=== PATIENT | female | born 1980 | race Caucasian/White ===

== ENCOUNTER 2018-01-14 22:32 | Emergency (ER) | payer OTHER ==
[~2018-01-14] VITALS: Ht 152.4 cm; Wt 90.7 kg
[~2018-01-14 22:32] MED LIST: ACETAMINOPHEN-1 EAC1 PO; AEROCHAMBER PL1 EACH MC; ALEVE220 MG PO; ATIVAN0.5 MG PO; BACTRIM DS TAB1 EACH PO; CLARITIN10 MG PO; DOXYCYCLINE 10100 MG PO; FLEXERIL PO; MEDROLDOSEPACK PO; MEGA BIOTIN10000 MCG PO; METFORMIN HCL500 MG PO; PERCOCET 5-3251 EACH PO; PHENAZOPYRIDIN200 M2 PO; PROAIR HFA8.5 GM INH; PROZAC20 M1 PO; TRINATE TABLET1 TAB PO; WELLBUTRIN SR150 MG PO; ZPAK PO
[2018-01-14] MEDS ORDERED: CELEXA40 MG (22:40)
[2018-01-14] MEDS ORDERED: CIPRODEX OTIC7.5 ML OTIC (22:47)
[2018-01-14 23:07] VITALS: BP 179/102
== END 2018-01-14 23:07 | disposition home or self-care (01) ==
LOC: M.ERS 22:32
DX: S00.412A Abrasion of left ear, initial encounter (principal); E11.9 Type 2 diabetes mellitus without complications; J44.9 Chronic obstructive pulmonary disease, unspecified; F17.210 Nicotine dependence, cigarettes, uncomplicated; Z88.5 Allergy status to narcotic agent; Z88.0 Allergy status to penicillin; Z91.041 Radiographic dye allergy status; X58.XXXA Exposure to other specified factors, initial encounter; Y93.89 Activity, other specified; Y92.89 Other specified places as the place of occurrence of the external cause; Y99.8 Other external cause status

== ENCOUNTER 2018-06-18 09:18 | Emergency (ER) | payer OTHER ==
[~2018-06-18] VITALS: Ht 152.4 cm; Wt 88.0 kg
[~2018-06-18 09:18] MED LIST changes: +CELEXA40 MG; +CIPRODEX OTIC7.5 ML OTIC
[2018-06-18] MEDS ORDERED: XANAX 0.25 MG0.25 MG PO (09:25)
[2018-06-18] MEDS ORDERED: BUSPIRONE HCL10 MG PO (09:25)
[2018-06-18] MEDS ORDERED: HYPERTENSION MED (09:31)
[2018-06-18] MEDS ORDERED: COZAAR 25 MG TA25 M1 PO (09:32)
[2018-06-18 09:40] LABS: ABSOLUTE EOSINOPHILS 0.3 thou/uL (0.0-0.7); ABSOLUTE LYMPHOCYTES 2.9 thou/uL (0.8-5.3); ABSOLUTE MONOCYTES 0.4 thou/uL (0.0-1.2); ABSOLUTE NEUTROPHILS 6.1 thou/uL (1.6-8.1); BASOPHILS 0.4 %; HEMATOCRIT 45.3 % (37.0-47.0); HEMOGLOBIN 15.2 gm/dL (12.0-15.0); MCHC 33.7 g/dL (28.0-37.0); MCV 86.2 fL (80.0-100.0); MONOCYTES 3.9 %; MPV 8.6 fl. (7.2-11.1); NUCLEATED RBCS 0 /100WBC; PLATELET COUNT* 245 thou/uL (150-400); POLYS 62.7 %; RBC 5.25 mil/uL (4.20-5.00); RDW-CV 14.2 % (10.5-14.5); WBC 9.8 thou/uL (4.0-11.0)
[2018-06-18 09:51] LABS: APTT 28.5 Seconds (25.0-31.3); INR 0.9; PROTIME 9.6 Seconds (9.20-11.50)
[2018-06-18 09:58] LABS: ANION GAP 9 mmol/L (7-16); BUN 13 mg/dL (7-18); CALCIUM 8.9 mg/dL (8.5-10.1); CHLORIDE 104 mmol/L (98-107); CO2 25 mmol/L (21-32); CREATININE 0.9 mg/dL (0.6-1.3); GLUCOSE 158 mg/dL (70-99); POTASSIUM 3.9 mmol/L (3.5-5.1); SODIUM 138 mmol/L (136-145)
[2018-06-18 10:16] LABS: ALBUMIN 3.5 g/dL (3.4-5.0); ALKALINE PHOSPHATASE 75 U/L (46-116); CK-MB MASS 0.8 ng/mL (<0.5-3.6); LIPASE 203 U/L (73-393); NT-PRO BRAIN NAT PEPTIDE 24 pg/mL (<300); SGOT 10 U/L (15-37); SGPT 20 U/L (30-65); TOTAL BILIRUBIN 0.1 mg/dL (<0.1-1.0); TOTAL PROTEIN 7.1 g/dL (6.4-8.2); TROPONIN-I LEVEL <0.06 ng/mL (<0.06)
[2018-06-18 10:41] VITALS: BP 143/86
--- NOTE | 2018-06-18 14:57 | EKG ---
[place] [address] ELECTROCARDIOGRAM REPORT Name: LEATHA GOELSORAYAAPARNA Willams Room: [facility]#: [id number] Admission: 06/18/18 Attend Phys: Discharge: 06/18/18 Date of : 76 Report #: [id number] THIS REPORT FOR: //name// [facility] ED Test Date: 2018-06-18 Test Time: 09:22:44 Pat Name: RICK GOEL Department: Room: Gender: F Financial Aid Advisor: KELLEE : 1980 Requested By: Alistair Lisa Order Number: [id number] MD: Rahat Wade Measurements Intervals [place] Rate: 83 P: 35 MT: 121 QRS: 18 QRSD: 81 T: 17 QT: 363 QTc: 427 Interpretive Statements Sinus rhythm Baseline wander in lead(s) II,III,aVL,aVF,V2,V3,V4,V5,V6 Compared to ECG 09/12/2014 09:25:08 No significant changes Electronically Signed On 06-18-2018 14:57:18 IMAGE ASSEMBLER by Rahat Wade [email or web address] <ELECTRONICALLY SIGNED> By: Rahat Wade MD, [facility] 06/18/18 1457 Rahat Wade MD, [facility] /EPI
== END 2018-06-18 10:42 | disposition home or self-care (01) ==
LOC: M.ERS 09:18
PROVIDERS: Family Medicine
DX: R07.89 Other chest pain (principal); F41.9 Anxiety disorder, unspecified; E11.9 Type 2 diabetes mellitus without complications; F17.210 Nicotine dependence, cigarettes, uncomplicated; Z88.0 Allergy status to penicillin; Z88.5 Allergy status to narcotic agent; Z91.041 Radiographic dye allergy status; Z88.8 Allergy status to other drugs, medicaments and biological substances

== ENCOUNTER 2018-12-04 13:16 | Emergency (ER) | payer OTHER ==
[~2018-12-04] VITALS: Ht 152.4 cm; Wt 90.7 kg
[~2018-12-04 13:16] MED LIST changes: +BUSPIRONE HCL10 MG PO; +COZAAR 25 MG TA25 M1 PO; +HYPERTENSION MED; +XANAX 0.25 MG0.25 MG PO
[2018-12-04 13:59] LABS: ABSOLUTE BASOPHILS 0.1 thou/uL (0.0-0.2); ABSOLUTE MONOCYTES 0.3 thou/uL (0.0-1.2); ABSOLUTE NEUTROPHILS 6.6 thou/uL (1.6-8.1); BASOPHILS 1.2 %; HEMATOCRIT 45.7 % (37.0-47.0); HEMOGLOBIN 15.6 gm/dL (12.0-15.0); LYMPHOCYTES 22.4 %; MCH 29.1 pg (26.0-34.0); MCHC 34.1 g/dL (28.0-37.0); MCV 85.3 fL (80.0-100.0); MONOCYTES 3.8 %; MPV 8.9 fl. (7.2-11.1); NUCLEATED RBCS 0 /100WBC; PLATELET COUNT* 215 thou/uL (150-400); POLYS 72.6 %; RBC 5.36 mil/uL (4.20-5.00); RDW-CV 14.3 % (10.5-14.5)
[2018-12-04 14:07] LABS: URINE BILIRUBIN NEGATIVE (Negative); URINE BLOOD NEGATIVE (Negative); URINE CLARITY CLEAR; URINE COLOR YELLOW; URINE GLUCOSE-RANDOM NEGATIVE (Negative); URINE KETONES TRACE (Negative); URINE LEUKOCYTES-REFLEX NEGATIVE (Negative); URINE NITRITE-REFLEX NEGATIVE (Negative); URINE PROTEIN NEGATIVE (Negative); URINE SPECIFIC GRAVITY >= 1.030 (1.005-1.030); URINE UROBILINOGEN 0.2 E.U./dl (0.2-1.0)
[2018-12-04 14:11] LABS: ANION GAP 9 mmol/L (7-16); APTT 25.1 Seconds (25.0-31.3); BUN 14 mg/dL (7-18); CALCIUM 9.6 mg/dL (8.5-10.1); CHLORIDE 103 mmol/L (98-107); CO2 27 mmol/L (21-32); GLUCOSE 137 mg/dL (70-99); POTASSIUM 3.9 mmol/L (3.5-5.1); PROTIME 9.8 Seconds (9.20-11.50); SODIUM 139 mmol/L (136-145)
[2018-12-04 14:14] LABS: AMP/METHAMP Negative (Negative); BARBITURATES Negative (Negative); BENZODIAZEPINES Negative (Negative); COCAINE Negative (Negative); METHADONE Negative (Negative); OPIATES Negative (Negative); PCP Negative (Negative); THC Negative (Negative)
[2018-12-04 14:24] LABS: ALKALINE PHOSPHATASE 87 U/L (46-116); NT-PRO BRAIN NAT PEPTIDE 30 pg/mL (<300); SGOT 16 U/L (15-37); SGPT 24 U/L (30-65); TOTAL BILIRUBIN 0.3 mg/dL (<0.1-1.0); TOTAL PROTEIN 7.8 g/dL (6.4-8.2); TROPONIN-I LEVEL <0.06 ng/mL (<0.06)
[2018-12-04 14:26] LABS: SALICYLATE 3.5 mg/dL (2.8-20.0)
[2018-12-04 14:27] LABS: ACETAMINOPHEN < 2 ug/mL (10-30); ALCOHOL < 10 mg/dL (<10)
--- NOTE | 2018-12-04 16:26 | EKG ---
[place] [address] ELECTROCARDIOGRAM REPORT Name: LEATHA GOELSORAYAAPARNA Willams Room: [facility]#: [id number] Admission: 12/04/18 Attend Phys: Discharge: Date of : [birth year] Report #: [id number] THIS REPORT FOR: //name// [facility] ED Test Date: 2018-12-04 Test Time: 13:24:50 Pat Name: RICK GOEL Department: Room: Gender: F Fitter Up: PAUL : 1980 Requested By: Srinivasa [place] Order Number: [id number] MD: Jabier Cerna Measurements Intervals [place] Rate: 77 P: 30 CA: 133 QRS: 3 QRSD: 82 T: 7 QT: 403 QTc: 457 Interpretive Statements Sinus rhythm Baseline wander in lead(s) V5 Compared to ECG 06/18/2018 09:22:44 No significant changes Electronically Signed On 12-04-2018 16:26:00 CDT by Jabier Cerna [email or web address] <ELECTRONICALLY SIGNED> By: Jabier Cerna MD, [facility] 12/04/18 1626 1324 1324 Jabier Cerna MD, FACC /EPI
[2018-12-04 17:02] VITALS: BP 139/88
== END 2018-12-04 17:03 | disposition home or self-care (01) ==
LOC: M.ERS 13:16
PROVIDERS: Emergency Medicine
DX: E86.0 Dehydration (principal); E11.9 Type 2 diabetes mellitus without complications; F41.9 Anxiety disorder, unspecified; E28.2 Polycystic ovarian syndrome; F17.210 Nicotine dependence, cigarettes, uncomplicated; Z88.0 Allergy status to penicillin; Z88.2 Allergy status to sulfonamides; Z88.5 Allergy status to narcotic agent; Z88.8 Allergy status to other drugs, medicaments and biological substances; Z91.041 Radiographic dye allergy status

== ENCOUNTER 2020-09-01 06:36 | Emergency (ER) | payer OTHER ==
[~2020-09-01] VITALS: Ht 152.4 cm; Wt 90.7 kg
[2020-09-01 07:34] VITALS: BP 152/80
== END 2020-09-01 07:35 | disposition home or self-care (01) ==
LOC: M.ERS 06:36
DX: F41.9 Anxiety disorder, unspecified (principal); F41.0 Panic disorder [episodic paroxysmal anxiety]; R61 Generalized hyperhidrosis; E11.9 Type 2 diabetes mellitus without complications; F17.210 Nicotine dependence, cigarettes, uncomplicated; Z88.5 Allergy status to narcotic agent; Z91.041 Radiographic dye allergy status; Z88.0 Allergy status to penicillin; Z88.2 Allergy status to sulfonamides; Z88.8 Allergy status to other drugs, medicaments and biological substances

== ENCOUNTER 2021-02-20 22:34 | Emergency (ER) | payer OTHER ==
[~2021-02-20] VITALS: Ht 152.4 cm; Wt 90.7 kg
[2021-02-20] MEDS ORDERED: COZAAR100 MG PO (22:44)
[2021-02-20] MEDS ORDERED: BUSPIRONE HCL15 MG PO (22:44)
[2021-02-20] MEDS ORDERED: VENLAFAXINE HCL25 MG PO (22:45)
[2021-02-20] MEDS ORDERED: SINGULAIR 10 MG10 MG PO (22:46)
[2021-02-20] MEDS ORDERED: CLARITIN10 M3 PO (22:46)
[2021-02-20 23:22] LABS: ABSOLUTE BASOPHILS 0.1 thou/uL (0.0-0.2); ABSOLUTE EOSINOPHILS 0.1 thou/uL (0.0-0.7); ABSOLUTE LYMPHOCYTES 1.8 thou/uL (0.8-5.3); ABSOLUTE MONOCYTES 0.5 thou/uL (0.0-1.2); ABSOLUTE NEUTROPHILS 3.6 thou/uL (1.6-8.1); BASOPHILS 1.2 %; EOSINOPHILS 1.1 %; HEMATOCRIT 43.5 % (37.0-47.0); HEMOGLOBIN 15.1 gm/dL (12.0-15.0); LYMPHOCYTES 29.4 %; MCH 28.7 pg (26.0-34.0); MCHC 34.7 g/dL (28.0-37.0); MCV 82.6 fL (80.0-100.0); MONOCYTES 8.4 %; MPV 8.9 fl. (7.2-11.1); NUCLEATED RBCS 0 /100WBC; PLATELET COUNT* 209 thou/uL (150-400); POLYS 59.9 %; RBC 5.26 mil/uL (4.20-5.00); RDW-CV 14.8 % (10.5-14.5)
[2021-02-20 23:29] LABS: CALCIUM 9.5 mg/dL (8.5-10.1); CREATININE 0.9 mg/dL (0.6-1.3); POTASSIUM 4.2 mmol/L (3.5-5.1)
[2021-02-20 23:33] LABS: ALBUMIN 3.8 g/dL (3.4-5.0); TOTAL BILIRUBIN 0.2 mg/dL (<0.1-1.0); TOTAL PROTEIN 7.2 g/dL (6.4-8.2)
[2021-02-20 23:41] LABS: URINE BILIRUBIN NEGATIVE (Negative); URINE BLOOD NEGATIVE (Negative); URINE CLARITY CLEAR; URINE COLOR YELLOW; URINE GLUCOSE-RANDOM 3+ (Negative); URINE KETONES NEGATIVE (Negative); URINE LEUKOCYTES-REFLEX NEGATIVE (Negative); URINE NITRITE-REFLEX NEGATIVE (Negative); URINE PROTEIN NEGATIVE (Negative); URINE SPECIFIC GRAVITY 1.015 (1.005-1.030); URINE UROBILINOGEN 0.2 E.U./dl (0.2-1.0)
[2021-02-21] MEDS ORDERED: ZOFRAN ODT4 MG PO (01:54)
[2021-02-21 02:05] VITALS: BP 123/84
--- NOTE | 2021-02-21 09:56 | EKG ---
[place] [address] ELECTROCARDIOGRAM REPORT Name: RICK GOEL I Room: [facility]#: [id number] Admission: 02/20/21 Attend Phys: Discharge: 02/21/21 Date of : [birth year] Date of Service: 02/20/21 2258 Report #: [id number] THIS REPORT FOR: //name// [facility] ED Test Date: 2021-02-20 Test Time: 22:58:14 Pat Name: RICK GOEL Department: Room: Gender: F Hand Thermal Cutter: CT : 1980 Requested By: Amaris Montanez Order Number: [id number] MD: Rahat Wade Measurements Intervals [place] Rate: 102 P: 58 CT: 118 QRS: 37 QRSD: 80 T: 34 QT: 341 QTc: 445 Interpretive Statements Sinus tachycardia Baseline wander in lead(s) III Compared to ECG 12/04/2018 13:24:50 Sinus rhythm no longer present Electronically Signed On 02-21-2021 9:56:08 CDT by Rahat Wade [email or web address] <ELECTRONICALLY SIGNED> By: Rahat Wade MD, FACC 02/21/21 0956 2258 2258 Rahat Wade MD, [facility] /EPI
== END 2021-02-21 02:10 | disposition home or self-care (01) ==
LOC: M.ERS 22:34
PROVIDERS: Personal Emergency Response Attendant
DX: E11.65 Type 2 diabetes mellitus with hyperglycemia (principal); R11.2 Nausea with vomiting, unspecified; F41.9 Anxiety disorder, unspecified; I10 Essential (primary) hypertension; F17.210 Nicotine dependence, cigarettes, uncomplicated; Z87.42 Personal history of other diseases of the female genital tract; Z79.899 Other long term (current) drug therapy; Z88.6 Allergy status to analgesic agent; Z91.041 Radiographic dye allergy status; Z88.0 Allergy status to penicillin; Z88.2 Allergy status to sulfonamides; Z88.8 Allergy status to other drugs, medicaments and biological substances

== ENCOUNTER 2021-03-03 15:15 | Emergency (ER) | payer OTHER ==
[~2021-03-03] VITALS: Ht 152.4 cm; Wt 90.7 kg
[~2021-03-03 15:15] MED LIST changes: +BUSPIRONE HCL15 MG PO; +CLARITIN10 M3 PO; +COZAAR100 MG PO; +SINGULAIR 10 MG10 MG PO; +VENLAFAXINE HCL50 MG PO; -XANAX 0.25 MG0.25 MG PO; +XANAX 0.5 MG0.5 M1 PO; +ZOFRAN ODT4 MG PO
[2021-03-03] MEDS ORDERED: BRINTELLIX5 MG PO (15:34)
[2021-03-03 16:24] LABS: ABSOLUTE BASOPHILS 0.1 thou/uL (0.0-0.2); ABSOLUTE EOSINOPHILS 0.2 thou/uL (0.0-0.7); ABSOLUTE LYMPHOCYTES 3.6 thou/uL (0.8-5.3); ABSOLUTE MONOCYTES 0.6 thou/uL (0.0-1.2); ABSOLUTE NEUTROPHILS 9.8 thou/uL (1.6-8.1); BASOPHILS 0.9 %; EOSINOPHILS 1.1 %; HEMATOCRIT 48.4 % (37.0-47.0); HEMOGLOBIN 16.3 gm/dL (12.0-15.0); LYMPHOCYTES 25.1 %; MCH 28.4 pg (26.0-34.0); MCHC 33.6 g/dL (28.0-37.0); MCV 84.6 fL (80.0-100.0); MONOCYTES 4.1 %; MPV 9.1 fl. (7.2-11.1); NUCLEATED RBCS 0 /100WBC; PLATELET COUNT* 258 thou/uL (150-400); POLYS 68.8 %; RBC 5.72 mil/uL (4.20-5.00); RDW-CV 14.6 % (10.5-14.5); WBC 14.2 thou/uL (4.0-11.0)
[2021-03-03 16:38] LABS: URINE BILIRUBIN NEGATIVE (Negative); URINE BLOOD NEGATIVE (Negative); URINE CLARITY CLEAR; URINE COLOR YELLOW; URINE GLUCOSE-RANDOM 3+ (Negative); URINE KETONES NEGATIVE (Negative); URINE LEUKOCYTES-REFLEX NEGATIVE (Negative); URINE NITRITE-REFLEX NEGATIVE (Negative); URINE PROTEIN NEGATIVE (Negative); URINE UROBILINOGEN 0.2 E.U./dl (0.2-1.0)
[2021-03-03 16:41] LABS: CALCIUM 9.3 mg/dL (8.5-10.1); CREATININE 0.9 mg/dL (0.6-1.3); POTASSIUM 4.1 mmol/L (3.5-5.1)
[2021-03-03 16:46] LABS: TOTAL BILIRUBIN 0.2 mg/dL (<0.1-1.0); TOTAL PROTEIN 7.8 g/dL (6.4-8.2)
[2021-03-03 16:48] LABS: AMP/METHAMP Negative (Negative); BARBITURATES Negative (Negative); BENZODIAZEPINES Negative (Negative); COCAINE Negative (Negative); METHADONE Negative (Negative); OPIATES Negative (Negative); PCP Negative (Negative); THC Negative (Negative)
[2021-03-03 17:18] LABS: ALCOHOL < 10 mg/dL (<10); SALICYLATE < 2.8 mg/dL (2.8-20.0)
[2021-03-03 17:19] LABS: ACETAMINOPHEN < 2 ug/mL (10-30)
[2021-03-03 17:40] LABS: SGOT 7.2 U/L (15-37)
[2021-03-04 12:57] VITALS: BP 122/68
== END 2021-03-04 12:58 | disposition home or self-care (01) ==
LOC: M.ERS 15:15
PROVIDERS: Family Medicine
DX: F32.89 Other specified depressive episodes (principal); Z20.822 Contact with and (suspected) exposure to COVID-19; R45.851 Suicidal ideations; E10.9 Type 1 diabetes mellitus without complications; F41.9 Anxiety disorder, unspecified; I10 Essential (primary) hypertension; F17.210 Nicotine dependence, cigarettes, uncomplicated; Z79.899 Other long term (current) drug therapy; Z88.0 Allergy status to penicillin; Z88.5 Allergy status to narcotic agent; Z91.041 Radiographic dye allergy status